=== PATIENT | female | born 1960 | race American Indian/Alaskan Native ===

== ENCOUNTER 2017-02-09 09:32 | Outpatient (CLI) | payer OTHER ==
--- NOTE | 2017-02-09 11:02 | XRay Report ---
LUMBAR SPINE RADIOGRAPHS: INDICATION: Lumbar back pain. Past back surgeries. COMPARISON: None similar. FINDINGS: AP and lateral lumbar spine radiographs demonstrate normal vertebral body stature. Approximately 2 mm retrolisthesis of L3 over L4 not excluded. Mild multilevel imaged spinal degenerative spurring. Bilateral L4-L5 pedicle rods and screws fusion posterior hardware noted with mild surrounding lucency. L4-L5 and L5-S1 intervertebral disc maintainers present. A right gluteal battery pack with emanating dual leads appear becoming intraspinal about T12 and extend cephalad, incompletely imaged. Few pelvic phleboliths. Nonobstructive bowel gas pattern. Left SI joint sclerosis. CONCLUSION: Postsurgical and degenerative changes noted, as described. Orthopedic correlation for L4-L5 fusion hardware loosening may be obtained in an appropriate setting. Direct comparison with prior relevant imaging would also be helpful, if available. Thank you for the opportunity to participate in this patient's care.
== END 2017-02-09 09:33 | disposition home or self-care (01) ==
LOC: XRAY 09:32
PROVIDERS: ATTEND Internal Medicine
DX: M47.896 Other spondylosis, lumbar region (principal); M43.26 Fusion of spine, lumbar region; E11.9 Type 2 diabetes mellitus without complications; I10 Essential (primary) hypertension; F17.200 Nicotine dependence, unspecified, uncomplicated
CPT/HCPCS: 72100

== ENCOUNTER 2019-05-03 09:10 | Outpatient (CLI) | payer MEDICARE ==
--- NOTE | 2019-05-03 09:57 | XRay Report ---
Thoracic spine, 2 views INDICATION: Back pain, dorsal column stimulator placement FINDINGS: The vertebral body heights and disc spaces are intact. Dorsal column stimulator is seen in the region of the mid to lower thoracic spine in the posterior spinal canal. Portions of the leads vi sualized appear intact. No significant abnormality. Signer Name: Mike Fernando MD Signed: 05/03/2019 9:53 AM Workstation Name: [id number]
== END 2019-05-03 09:11 | disposition home or self-care (01) ==
LOC: XRAY 09:10
DX: M54.6 Pain in thoracic spine (principal)
CPT/HCPCS: 72070